=== PATIENT | female | born 1945 | race Caucasian/White ===

== ENCOUNTER 2017-02-22 13:12 | Emergency (ER) | payer OTHER, BC ==
[~2017-02-22] VITALS: Ht 160 cm; Wt 97.5 kg
--- NOTE | ~2017-02-22 | EKG ---
[place] [address] [facility] [place] [address] ELECTROCARDIOGRAM REPORT Name: MICHELLE DUGGAN [id number] Admission: 02/22/17 Attend Phys: Discharge: Date of : 49 Report #: [id number] THIS REPORT FOR: //name// [facility] ED Test Date: 2017-02-22 Test Time: 14:03:08 Pat Name: MICHELLE URBAN Department: Room: Gender: F [employer]: MZOOK : 1945 Requested By: Dianne eTllo Order Number: [id number] MD: Momo Mak Measurements Intervals [place] Rate: 69 P: 15 NE: 202 QRS: -7 QRSD: 91 T: 48 QT: 384 QTc: 412 Interpretive Statements Sinus rhythm Ventricular premature complex Abnormal R-wave progression, early transition Electronically Signed On 02-22-2017 14:35:28 CDT by Momo Mak [email or web address] <ELECTRONICALLY SIGNED> By: Momo Mak MD 02/22/17 1435 1403 1403 MD ARLENE Pillai
[2017-02-22 13:57] LABS: ABSOLUTE NEUTROPHILS 5.4 thou/uL (1.4-8.2); BASOPHILS 0.7 % (0.0-2.0); EOSINOPHILS 3.3 % (0.0-3.0); HEMATOCRIT 37.4 % (37.0-47.0); HEMOGLOBIN 12.3 gm/dL (12.0-15.0); LYMPHOCYTES 20.4 % (24.0-44.0); MANUAL DIFF NO; MCH 24.4 pg (26.0-34.0); MCHC 32.9 g/dL (28.0-37.0); MCV 74.1 fL (80.0-100.0); MONOCYTES 9.8 % (1.0-8.0); PLATELET COUNT 264 thou/uL (150-400); POLYS 65.8 % (36.0-66.0); RBC 5.05 mil/uL (4.20-5.00); RDW 16.1 % (10.5-14.5); WBC 8.2 thou/uL (4.0-11.0)
[2017-02-22 13:59] LABS: ANION GAP 7 mmol/L (7-16); BUN 27 mg/dL (7-18); CHLORIDE 106 mmol/L (98-107); CO2 28 mmol/L (21-32); CREATININE 0.9 mg/dL (0.6-1.0); GLUCOSE 94 mg/dL (74-106); POTASSIUM 4.2 mmol/L (3.5-5.1); SODIUM 141 mmol/L (136-145)
[2017-02-22 14:07] LABS: TROPONIN-I < 0.04 ng/mL (<0.04-0.07)
[2017-02-22 17:21] VITALS: BP 118/76
[2017-02-22] MEDS ORDERED: ZPAK PO ×2 (17:33→17:35)
== END 2017-02-22 19:29 | disposition home or self-care (01) ==
LOC: ER 13:12
PROVIDERS: Emergency Medicine
DX: J18.8 Other pneumonia, unspecified organism (principal); R07.9 Chest pain, unspecified; M32.9 Systemic lupus erythematosus, unspecified; J44.9 Chronic obstructive pulmonary disease, unspecified; M79.7 Fibromyalgia; I73.00 Raynaud's syndrome without gangrene; E24.9 Cushing's syndrome, unspecified; Z91.041 Radiographic dye allergy status